=== PATIENT | male | born 1935 | race Caucasian/White ===

== ENCOUNTER 2017-10-09 16:16 | Outpatient (CLI) | payer MEDICARE, BC | END 2017-10-09 16:17 | disposition critical access hospital (66) | LOC: EMS 16:16 | PROVIDERS: ATTEND Surgery | DX: R55 Syncope and collapse (principal) | CPT/HCPCS: A0425; A0427 ==

== ENCOUNTER 2017-10-09 16:32 | Observation (INO) | payer MEDICARE, BC ==
--- NOTE | 2017-10-09 16:50 | ED Physician Documentation ---
PD HPI SYNCOPE - Stated complaint Stated Complaint: SYNCOPAL EPISODE - History obtained from History obtained from: Patient - History of Present Illness Witnessed: Witnessed (82-year-old gentleman with no significant past medical history but has had some shortness of breath recently and asymmetric pedal edema and in the past at [facility] I guess on EKG which was followed with a stress test last year for him which was negative but no echo. Today he was carrying a small door and had a syncopal episode. He felt dizzy for about 30 seconds prior. It sounds like he was out for about a minute and CPR was done while he was down. There was no chest pain or trouble breathing before or since the accident.) Review of Systems Ten Systems: 10 systems reviewed and negative Constitutional: denies: Fever, Chills Cardiac: denies: Chest pain / pressure, Palpitations Respiratory: reports: Dyspnea. denies: Cough GI: denies: Abdominal Pain, Nausea, Vomiting Musculoskeletal: denies: Neck pain, Back pain PD PAST MEDICAL HISTORY - Present Medications Home Medications: Ambulatory Orders Medication Instructions Recorded Confirmed Ascorbic Acid [Vitamin C with Angie 10/09/17 Hips] Citalopram Hydrobromide 10/09/17 [Citalopram HBr] Lisinopril 10/09/17 Magnesium Oxide [Magnesium] 10/09/17 [place]-3S/Dha/Epa/Fish Oil 10/09/17 [Sea-[place] 1,000 mg Softgel] Ubidecarenone [Co Q-10] 10/09/17 Yeast,Dried (S. Cerevisiae) 10/09/17 [Sepulveda's Yeast] diltiaZEM CD [Cardizem Cd] 10/09/17 - Allergies Allergies/Adverse Reactions: Allergies Allergy/AdvReac Type Severity Reaction Status Date / Time No Known Drug Allergies Allergy Verified 10/09/17 16:55 - Living Situation Living Situation: reports: With spouse/s.o. - Social History Does the pt smoke?: No PD ED PE NORMAL - General General: Alert and oriented X 3, No acute distress - HEENT HEENT: PERRL, EOMI - Neck Neck: Supple, no meningeal sign, No bony TTP - Cardiac Cardiac: RRR, No murmur - Respiratory Respiratory: No respiratory distress, Clear bilaterally - Abdomen Abdomen: Normal bowel sounds, Soft, Non tender - Back Back: No CVA TTP, No spinal TTP - Derm Derm: Normal color, Warm and dry - Extremities Extremities: Other (He has asymmetric pedal edema, left eye greater than right.) - Neuro Neuro: Alert and oriented X 3, Normal speech - Psych Psych: Normal mood, Normal affect Results - Vitals Vitals: Vital Signs - 24 hr 10/09/17 10/09/17 10/09/17 16:34 17:36 19:28 Temperature 37.6 C H Heart Rate 96 88 92 Respiratory 16 22 21 Rate Blood Pressure 135/87 H 123/85 H 145/92 H O2 Saturation 94 94 92 Oxygen O2 Source Room air - EKG (time done) 1648 Rate: Rate (enter#) (91) Rhythm: NSR (With supraventricular bigeminy) [place]: Normal Intervals: Normal NC QRS: LVH Ischemia: Non specific changes Computer interpretation: Agree with computer - Labs Labs: Laboratory Tests 10/09/17 10/09/17 10/09/17 16:58 16:58 16:58 WBC 5.8 RBC 4.09 L Hgb 13.0 L Hct 39.0 L MCV 95.1 H MCH 31.7 H MCHC 33.4 RDW 14.0 Plt Count 199 MPV 7.5 Neut # (Auto) 4.3 Lymph # (Auto) 0.9 L [place] # (Auto) 0.5 Eos # (Auto) 0.1 Baso # (Auto) 0.0 Absolute Nucleated RBC 0.00 Nucleated RBC % 0.1 Sodium 139 Potassium 4.0 Chloride 105 Carbon Dioxide 25 Anion Gap 9.0 BUN 23 H Creatinine 0.7 Estimated GFR (MDRD) 108 Glucose 123 H Calcium 8.7 Magnesium 1.9 Total Bilirubin 0.5 AST 39 ALT 37 Alkaline Phosphatase 80 Troponin I < 0.04 Total Protein 6.3 L Albumin 3.1 L Globulin 3.2 Albumin/Globulin Ratio 1.0 Lipase 26 PD MEDICAL DECISION MAKING - ED course ED course: 82-year-old gentleman with syncopal episode today with some concerning features. His EKG is without ischemic changes and he was without malignant arrhythmia in the emergency department but was having supraventricular bigeminy. Concern for PE given left leg swelling and syncope, however the popliteal mass probably explains the left leg swelling. CT pulmonary angiogram was worrisome for a right renal mass which will need further workup. Call the hospitalist for observation at 8:10 PM. - Sepsis Event Vital Signs: Vital Signs - 24 hr 10/09/17 10/09/17 10/09/17 16:34 17:36 19:28 Temperature 37.6 C H Heart Rate 96 88 92 Respiratory 16 22 21 Rate Blood Pressure 135/87 H 123/85 H 145/92 H O2 Saturation 94 94 92 Oxygen O2 Source Room air Departure - Departure Disposition: ED Place in Observation Clinical Impression: Renal mass Syncope Qualifiers: Syncope type: unspecified Qualified Code(s): R55 - Syncope and collapse Condition: Stable
[2017-10-09 17:02] LABS: BASOPHILS % (AUTO) 0.5 %; EOSINOPHILS # (AUTO) 0.1 10^3/uL (0.0-0.7); EOSINOPHILS % (AUTO) 1.5 %; LYMPHOCYTES # (AUTO) 0.9 10^3/uL (1.5-3.5); LYMPHOCYTES % (AUTO) 15.6 %; MEAN CORPUSCULAR HEMOGLOBIN 31.7 pg (27.0-31.0); MEAN CORPUSCULAR HGB CONC 33.4 g/dL (32.0-36.0); MEAN CORPUSCULAR VOLUME 95.1 fL (80.0-94.0); MEAN PLATELET VOLUME 7.5 fL (7.4-11.4); MONOCYTES # (AUTO) 0.5 10^3/uL (0.0-1.0); MONOCYTES % (AUTO) 8.4 %; NEUTROPHILS # (AUTO) 4.3 10^3/uL (1.5-6.6); PLT - PLATELET COUNT 199 10^3/uL (130-450); RED BLOOD COUNT 4.09 10^6/uL (4.70-6.10); WHITE BLOOD COUNT 5.8 x10^3/uL (4.8-10.8)
[2017-10-09 17:13] LABS: ALBUMIN 3.1 g/dL (3.2-5.5); BILIRUBIN,TOTAL 0.5 mg/dL (0.2-1.0); CALCIUM 8.7 mg/dL (8.5-10.3); CREATININE 0.7 mg/dL (0.6-1.2); MAGNESIUM 1.9 mg/dL (1.7-2.8); TOTAL PROTEIN 6.3 g/dL (6.7-8.2)
[2017-10-09] MEDS ORDERED: IOPAMIDOL-300 100 ML VIAL ONE ×2 (18:20→21:54)
--- NOTE | 2017-10-09 19:23 | Ultrasound Report ---
Procedure Date: 10/09/2017 Accession Number: [id number] / [id number] Procedure: US - Duplex Ext Veins Bilateral CPT Code: FULL RESULT: EXAM: BILATERAL LOWER EXTREMITY VENOUS ULTRASOUND EXAM DATE: 10/09/2017 07:08 PM. CLINICAL HISTORY: Asymmetric leg edema. COMPARISON: None. TECHNIQUE: Real-time sonographic vascular imaging was performed by the grades 7 and 8 visiting teacher through the lower extremities utilizing both color-flow and Doppler spectral analysis. Multiple field marketing representative static images were saved for review. FINDINGS: Right: Common Femoral Vein (CFV): Normal. CFV-GSV Junction: Normal. Profunda Femoral Vein (PFV): Normal. Femoral Vein (FV) Prox: Normal. Femoral Vein (FV) Mid: Normal. Femoral Vein (FV) Dist: Normal. Popliteal Vein: Normal. Posterior Tibial Veins: Normal. Peroneal Veins: Normal. Left: Common Femoral Vein (CFV): Normal. CFV-GSV Junction: Normal. Profunda Femoral Vein (PFV): Normal. Femoral Vein (FV) Prox: Normal. Femoral Vein (FV) Mid: Normal. Femoral Vein (FV) Dist: Normal. Popliteal Vein: Normal. Posterior Tibial Veins: Normal. Peroneal Veins: Normal. Other: Right popliteal fossa heavily calcified tubular area with a large amount of posterior shadowing in the soft tissue, could be calcification of muscle/tendon or adjacent soft tissue. Uncertain etiology. This measures 6.1 x 2.8 x 1.4 cm IMPRESSION: No evidence for deep venous thrombosis bilaterally. Right popliteal fossa heavily calcified tubular area with a large amount of posterior shadowing in the soft tissue, could be calcification of muscle/tendon or adjacent soft tissue. Uncertain etiology. This measures 6.1 x 2.8 x 1.4 cm. RADIA
[2017-10-09] MEDS: IOPAMIDOL-300 100 ML VIAL IVP ONE ×2 (19:41→22:40)
--- NOTE | 2017-10-09 19:57 | CT Report ---
Procedure Date: 10/09/2017 Accession Number: [id number] / [id number] Procedure: CT - Chest Angio (PE) CPT Code: FULL RESULT: EXAM: CT ANGIOGRAM CHEST EXAM DATE: 10/09/2017 07:18 PM. CLINICAL HISTORY: Syncope. COMPARISON: None. TECHNIQUE: Routine helical imaging was performed through the chest in the pulmonary arterial phase. IV Contrast: ISOVUE 300 80mL. Reconstructions: Coronal 3-D MIP reconstructions.Sagittal and coronal. In accordance with CT protocol optimization, one or more of the following dose reduction techniques were utilized for this exam: automated exposure control, adjustment of mA and/or KV based on patient size, or use of iterative reconstructive technique. FINDINGS: Pulmonary Arteries: Diagnostic quality: Mildly limited due to motion artifact, most conspicuously in the bases. Heart is mildly enlarged. A small amount of contrast refluxes into the inferior vena cava. No bowing of the ventricular septum. Lungs/Pleura: Scattered reticular densities are likely atelectasis. No consolidation. No pleural effusion or pneumothorax. No mass. Mildly elevated right hemidiaphragm. Mediastinum: Heart is mildly enlarged. Prominent right hilar lymph nodes measure up to 10 mm in short axis. Prominent but not pathologically enlarged mediastinal lymph nodes. Thoracic Aorta: Atherosclerosis. Upper Abdomen: Large right suprarenal or renal mass. Otherwise unremarkable. Other: None. IMPRESSION: 1. No pulmonary emboli identified. Mildly limited exam due to motion artifact. 2. Large right suprarenal or renal mass. Recommend further evaluation with contrast-enhanced abdomen/pelvis CT. RADIA
[2017-10-09] MEDS ORDERED: oxyCODONE 5 MG TABLET PO PRN (20:15)
[2017-10-09] MEDS ORDERED: ONDANSETRON ODT 4 MG TABLET TL PRN (20:15)
[2017-10-09] MEDS ORDERED: ONDANSETRON 4 MG/2 ML VIAL IVP PRN (20:15)
[2017-10-09] MEDS ORDERED: SODIUM CHLORIDE FLUSH 0.9% 10 ML SYRINGE IVP PRN (20:15)
[2017-10-09] MEDS ORDERED: ACETAMINOPHEN 325 MG TABLET PO PRN (20:15)
[2017-10-09] MEDS ORDERED: IOPAMIDOL-300 100 ML VIAL IVP ONE (20:16)
[2017-10-09 20:37] LABS: MEAN RETIC VALUE 117.1; RED BLOOD COUNT 4.05 10^6/uL (4.70-6.10)
[2017-10-09 20:51] LABS: % IRON SATURATION 7 % (20-50); IRON 20 ug/dL (45-182); TOTAL IRON BINDING CAPACITY 290 ug/dL (250-450); TRANSFERRIN 207 mg/dL (180-329)
[2017-10-09 21:03] LABS: FERRITIN 89.3 ng/mL (23.9-336.2)
--- NOTE | 2017-10-09 23:26 | HISTORY & PHYSICAL EXAMINATION ---
Chief Complaint - Chief Complaint Chief Complaint: passing out for a few minutes History of Present Illness - Admitted From Admitted From:: ER/Home - History Obtained From Records Reviewed: [facility] History obtained from: Patient, , and Dr. Tomlin Exam Limitations: none - History of Present Illness HPI Comment/Other: He regards himself as a healthy nahomy until about 2 months ago. He lives on the [place] for the summer and in [place] for the winter. In [place], he can do 1200 sit ups a day and walks regularly. Here, he mows his lawn with a push mower, and takes care of the property on his own. But 2 months ago, a sudden fatigue started. He has to sit down and rest in the middle of the day and he's never had to before. Denies cp, lopez, cough, sputum, chest congestion, or change in appetite/weight loss. He doesn't eat red meat and prefers duck, fish, turkey and that hasn't changed. He denies sweats. He has had prostate cancer in the past and his PSA has been so low that he now gets it checked q2 years. No ruchi pain. No change in urinary or bowel habits. No flank pain, no hematuria, no pelvic or rectal pain. No blood in his stool. But he has had more problems with breathing at night. He wakes himself with the whistling his nose makes and is starting to breath with an open mouth. No apnea. He sleeps well in spite of this but does admit to the new wakening. he does have new left leg edema that he's not had before. No recent travel or extended flight, car drive. He saw his PCP at the [facility] thru the [facility] and he was told it might be allergies and was given flonase. he took it for 2-3 days and he wasn't better so he stopped it. Today, he went to a [employer] shop in [place] to corn picker a small cabinet door. It wasn't heavy and he was walking to his car when he had a few seconds (not even a full minute) of dizziness and the next thing he knows he's waking up on the floor w CPR being done by the wood shop freight flagman. He was reported as not having a pulse or pressure and had CPR administered for about a minute when he came to. No confusion, no slurred speech, no bowel or urine incontinence. He didn't even hurt in his chest for the CPR. He's never had dizziness or orthostatic complaints before. Never told he had arrhythmia before. he did have a nuclear medicine stress test in [place] years ago (couldn't do Waqas protocol bc of knee pain at that time) and that was nml. In our ER, he was seen by Dr. Tomlin. EKG had NSR, LVH and supraventricular bigeminy. BP 135/87 with a low grade temp of 37.6. Normal physical exam except for a unilateral left leg edema. US of the leg had no DVT and CTA of the chest without PE but he has a large left renal mass. He does have a calcified cystic mass in the politeal fossa of the left knee. Placed in OBV for syncope. 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 He's "grumpy") Musculoskeletal: reports: Other (right shoulder OA and right rotator cuff repair x 2. ) Derm: reports: None MRSA Hx?: Yes - Past Surgical History Ortho: reports: Rotator cuff repair, Other (dupuytren's contracture with repair bilaterally) HEENT: reports: Tonsil/Adenoidectomy - Family & Social History Family History Comment/Other: Mom at 89 of old age and maybe "kidneys giving out". Dad at 65 of valvular heart disease from childhood rheumatic fever and also was an alcoholic. no sibs. no children Living arrangement: At home Living Situation: With spouse/s.o. Social History Notes: Born in [place] but lived in the [facility] ([place]) for 37 years. twice and has been to his 2nd for ~41 years. From [place] moved to [facility] for 10 years but too expensive and then moved to [facility] 4 years ago. Also lives in [place] for the winter months. Was in the [employer] for 6 years. Not service connected. he started smoking age of 16 and quit age of 42. No hx of alcohol abuse. Used LSD once as part of a [employer] experiment in 1963. No other recreational substance use. - Substance History Use: Uses substance without health or social issues: NONE Abuse: Recurrent use of substance despite neg consequences: NONE Dependence: Experiences withdrawal or developed tolerances: NONE - POLST Patient has POLST: No POLST Status: Full Code Meds/Allgy - Home Medications Home Medications: Ambulatory Orders Medication Instructions Recorded Confirmed Ascorbic Acid [Vitamin C with Angie 10/09/17 Hips] Citalopram Hydrobromide 20 mg PO DAILY 10/09/17 10/09/17 [Citalopram HBr] Diltiazem HCl [Diltiazem ER] 240 mg PO DAILY 10/09/17 10/09/17 Lisinopril 40 mg PO DAILY 10/09/17 10/09/17 Magnesium Oxide [Magnesium] 10/09/17 [place]-3S/Dha/Epa/Fish Oil 10/09/17 [Sea-[place] 1,000 mg Softgel] Ubidecarenone [Co Q-10] 10/09/17 Yeast,Dried (S. Cerevisiae) 10/09/17 [Sepulveda's Yeast] - Allergies Allergies/Adverse Reactions: Allergies Allergy/AdvReac Type Severity Reaction Status Date / Time No Known Drug Allergies Allergy Verified 10/09/17 16:55 Review of Systems - Constitutional Constitutional: reports: Fatigue, Malaise, Diaphoresis (only after he woke up from CPR). denies: Fever, Chills, Weakness, Poor appetite, Night sweats, Weight gain, Weight loss - Eyes Eyes: denies: Pain, Irritation, Amaurosis, Blurred vision, Spots in vision, Field loss, Vision loss - Ears, Nose & Throat Ears, Nose & Throat: reports: Hearing loss, Nasal obstruction, Nasal congestion , Dentures (that he doesn't wear). denies: Ear pain, Hearing aids, Tinnitus, Vertigo, Postnasal drainage, Sore throat, Hoarseness, Mouth lesions - Cardiovascular Cariovascular: reports: Edema (left leg only), Lightheadedness (today only for a few seconds), Syncope (today only, never before), Exertional dyspnea (maybe), Decr. exercise tolerance (yes for 2 months). denies: Irregular heart rate, Palpitations, Chest pain, Orthopnea - Respiratory Respiratory: reports: Snoring. denies: Cough, Sputum production, Wheezing, Hemoptysis, Orthopnea, SOB at rest, SOB with exertion, Apnea, Stridor - Gastrointestinal Gastrointestinal: denies: Abdominal pain, Abdominal distention, Constipation, Diarrhea, Change in bowel habits, Rectal bleeding, Nausea, Vomiting - Genitourinary Genitourinary: reports: Nocturia (is only once a night and stable for years). denies: Dysuria, Frequency, Urgency, Hematuria, Incontinence, Urethral discharge - Musculoskeletal Musculoskeletal: reports: Stiffness (knees and shoulders). denies: Muscle pain , Back pain, Muscle aches - Integumentary Integumentary: denies: Rash, Pruritis, Lesions, Dryness - Neurological Neurological: denies: General weakness, Focal weakness, Headache, Dizziness, Numbness, Memory problems, Pre-existing deficit, Abnormal gait, Seizures, Incoordination, Slurred speech - Psychiatric Psychiatric: reports: Depression. denies: Anxiety, Suicidal, Delusions - Endocrine Endocrine: denies: Polyuria, Polydypsia, Polyphagia, Intolerance to cold - Hematologic/Lymphatic Hematologic/Lymphatic: denies: Anemia, Bruising, Petechiae, Blood clots, Lymphadenopathy Exam - Vital Signs Reviewed Vital Signs: Yes Vital Signs: Vital Signs x48h Temp Pulse Resp BP Pulse Ox 10/09/17 21:04 36.8 C 98 17 134/90 H 92 - Physical Exam General Appearance: positive: No acute distress, Alert, Other (tanned elderly white male who looks stated age) Eyes Bilateral: positive: PERRL, EOMI, No scleral icterus ENT: positive: Pharynx nml Neck: positive: Thyroid nml, No JVD. negative: Stiff neck, Carotid bruit Respiratory: positive: Chest non-tender. negative: Wheezes, Rales, Rhonchi Cardiovascular: positive: Regular rate & rhythm, No murmur, No gallop, Extrasystoles. negative: Friction rub Peripheral Pulses: positive: 1+ Abdomen: positive: Non-tender, Nml bowel sounds, Mass (left abd fullness felt). negative: Tenderness, Guarding, Rebound Skin: positive: No rash, Warm, Dry, Other (chronic hyperpigmentation of shins) Extremities: positive: Non-tender, Full ROM, Pedal edema (only on left leg and it's 1+ from calf to just above knee. Left popliteal fossa doran when compared to right, but no pain. No venous stasis dermatitis.). negative: Joint swelling , Nadya's sign/cords Neurologic/Psychiatric: positive: Oriented x3, CN's nml (2-12), Motor nml, Mood/ affect nml. negative: Weakness, Facial droop, Slurred/abnml speech, Depressed mood/affect Reflexes: Bicep (R): 1+, Bicep (L): 1+, Knee (R): 1+, Knee (L): 1+, Ankle (R): 0 , Ankle (L): 0 Babinski Reflex: Right: Down, Left: Down Conclusion/Plan - Problem List (1) Syncope Conclusion/Plan: he has never had syncope before and had very little warning of this episode. Seconds. Does not sound like vasovagal syncope or orthostatic syncope. It was witnessed so no seizure. Dr Tomlin also looked at the possiblity of DVT w PE and that was negative. He has EKG changes of SVT and LVH. Differential would include Vtach from LVH or 2nd/3rd degree from use of diltiazem or SVT. Plan: [facility] and Stalin, the Admin hotel front office manager, states there are no beds. Telemetry ECHO in the morning. Qualifiers: Syncope type: unspecified Qualified Code(s): R55 - Syncope and collapse (2) Renal mass, left Conclusion/Plan: large enough to push normal kidney down and to the right under the liver. Unfortunately this mas be a primary malignancy and less likely metastatic disease from prostate cancer. Lower on the differential would be adrenal tumor or angiomyolipoma. This mass may be the cause of his fatigue and decreased exercise tolerance. I would think the size would also diminish his appetite and cause weight loss but he and his deny any changes in weight or diet. Plan: CT of abd and pelvis with contrast IVF since he will receive a dye study check BMP in am. once the results return, I will carefully explain them to the patient and will strongly recommend NO BIOPSY. The mass will need to be removed surgically. He has a PCP named Dr. Jessica Worley who works at the [facility] and I will send a copy of this H&P to her at [phone]. The [facility] number for Claudia is [phone]. (3) Leg edema, left Conclusion/Plan: Differential: DVT ruled out Pelvic mass to be evaluated with CT pelvis Adhesions from old prostate cancer surgery causing May Thurner syndrome? Anatomy of left renal vein with ureteral mets then causing iliac vein back flow? compression of leg vein from old Choudhury's cyst (but this has only been ongoing for 2 months). Plan: compression stocking. doubt venogram needed at this time. The renal mass is more important. (4) Macrocytic anemia Conclusion/Plan: is convinced it's his diet. mild. not the cause of his syncope Plan: anemia panel. - Lab Results Fish Bones: 10/09/17 16:58 10/09/17 16:58 - Diagnostic Imaging Results Diagnostic Imaging Results: positive: Final report reviewed - EKG Results EKG Interpreted Independently: No EKG Comparison: Old EKG unavailable Core Measures - Anticipated LOS I expect patient to be DC'd or transferred within 96 hours.: Yes - DVT/VTE - Prophylaxis VTE/DVT Device ordered at admit?: Yes
--- NOTE | 2017-10-10 01:33 | CT Report ---
Procedure Date: 10/09/2017 Accession Number: [id number] / [id number] Procedure: CT - Abdomen W/WO CPT Code: FULL RESULT: EXAM: CT ABDOMEN WITHOUT AND WITH CONTRAST EXAM DATE: 10/09/2017 10:44 PM. HISTORY: Renal mass. Further assessment and characterization. COMPARISON: CHEST ANGIO 10/09/2017. TECHNIQUE: Routine helical CT imaging was performed through the abdomen before and after administration of IV contrast: 100 mL Isovue-300. Enteric contrast: No. Reconstruction: Coronal and sagittal. In accordance with CT protocol optimization, one or more of the following dose reduction techniques were utilized for this exam: automated exposure control, adjustment of mA and/or KV based on patient size, or use of iterative reconstructive technique. FINDINGS: There is contrast material within the renal collecting systems bilaterally, from the preceding contrast-enhanced CT of the chest. As such, true noncontrast images cannot be acquired on this examination. There is a large right upper quadrant heterogeneous mass with heterogeneous enhancement on the postcontrast images. On the coronal and sagittal images, there is a thin plane between the right kidney and this mass. The mass originates from the right adrenal, with extension into the IVC. Hepatic veins are not well-visualized on this examination. This measures 13.7 x 11.3 x 14.0 cm (image 36 series 10). Tumor thrombus into the IVC is noted, with distention of the IVC just below the intrahepatic section of the IVC. Tiny parenchymal low-density foci within the right kidney are seen. These are difficult to characterize due to their small size. There is note made of multiple left renal cysts, largest measuring 4.8 x 3.5 cm (image 43 series 10). There is no definite left renal suspicious mass demonstrated at this time. There is a hyperdense cyst arising from the posterior aspect of the left mid kidney, measuring 11 mm. Small area of parenchymal scarring seen within the midportion of the left kidney posterolaterally with associated calyceal dilatation (image 42 series 10). No hydronephrosis within the right or left kidney demonstrated. There is symmetric contrast excretion by the kidneys bilaterally. Visualized portions of the liver demonstrate geographic indeterminate hyperenhancement within the liver superiorly, segment-8/4A (image 23 series 10). No definite additional suspicious hepatic lesion is seen at this time. Contracted gallbladder without calcified gallstones. Moderate parenchymal involution of the pancreas. No definite suspicious pancreatic lesion is demonstrated. The spleen is without significant abnormality. No definite abnormally dilated bowel loops demonstrated at this time. Appendix could not be identified with certainty on this exam. No significant free fluid or lymphadenopathy demonstrated. Moderate aortic and branch vessel atherosclerosis is present. There is moderate to severe narrowing at the origin of the celiac axis with mild poststenotic dilatation. SMA is widely patent. Lower Chest: There is dependent atelectasis within the lung bases. Small concurrent aspiration difficult to exclude with certainty. No effusion. Moderate to severe coronary vascular calcification is present. Bones: Severe multilevel degenerative change noted within the spine. Multifocal subtle small lucent abnormalities are seen within the lumbar vertebral bodies, particularly L2. These may represent areas of osteopenia. However, subtle metastases difficult to exclude with certainty. IMPRESSION: 1. Large right upper quadrant mass, arising from the right adrenal. 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 2. Invasion of the IVC with distention of the IVC, with tumor thrombus extending up to the level just below the intrahepatic IVC. 3. There is a small to medium size geographic area of increased enhancement within the superior portion of the liver, segment-8/4A. This is difficult to characterize on this exam. Further assessment recommended with a nonemergent liver MRI without and with Eovist contrast. 4. There is no definite suspicious solid appearing renal mass noted at this time. Multiple left renal cysts. Scattered tiny low-density foci within the right kidney, also probably cysts. RADIA
[2017-10-10 06:24] LABS: CALCIUM 8.8 mg/dL (8.5-10.3); CREATININE 0.7 mg/dL (0.6-1.2)
[2017-10-10] MEDS: SODIUM CHLORIDE FLUSH 0.9% 10 ML SYRINGE IVP SCH ×2 (07:20→09:00)
[2017-10-10] MEDS ORDERED: POLYETHYLENE GLYCOL 3350 17 GM PACKET PO SCH (09:00)
[2017-10-10] MEDS ORDERED: SPIRONOLACTONE 25 MG TABLET PO SCH (12:00)
[2017-10-10] MEDS ORDERED: LISINOPRIL 20 MG TABLET PO SCH (12:00)
[2017-10-10] MEDS ORDERED: METOPROLOL SUCCINATE 50 MG TABLET PO SCH (12:00)
[2017-10-10 13:45] VITALS: BP 122/76
--- NOTE | 2017-10-10 14:46 | Discharge Plan ---
Discharge Plan Disposition: Home, Self Care Condition: Fair Prescriptions: Metoprolol Succinate [Toprol Xl] 50 mg PO DAILY #30 tablet Spironolactone [Aldactone] 25 mg PO DAILY #30 tablet Diet: Low Sodium Activity Restrictions: Activity as Tolerated Shower Restrictions: No Driving Restrictions: No Weight Bearing: Full Weight Instruction Topics: Metoprolol tablets, Spironolactone tablets, Heart Failure Congestive Ch Additional Instructions or Follow Up instructions: You presented to the emergency department with a syncopal episode. While you are being evaluated for syncopal episode in the emergency department you underwent a CT angiogram of your chest which was negative for a pulmonary embolism but showed a huge renal mass. You underwent a CT of your abdomen which confirmed that you did have a renal mass that was extending into your inferior vena cava. You were monitored on telemetry and had no further events. You underwent an echocardiogram which revealed an ejection fraction of less than 20%. He was started on optimal treatment for congestive heart failure with metoprolol, spironolactone and you were continued on lisinopril. I have sent a referral to the [facility] cardiology to get you an urgent appointment to be evaluated by them. You have also called to make an appointment with urologic surgery/oncology at the [facility]. Please follow-up with your primary care physician as soon as possible and try to weeks PDA the above appointments as much as possible. Wish you the best of luck with your treatment going forward. No Smoking: If you smoke, Please STOP! Call for help. Follow-up with: Provider,Other [Primary Care Provider] -
--- NOTE | 2017-10-10 14:59 | DISCHARGE SUMMARY ---
Discharge Summary Admit Date: 10/09/17 Discharge Date: 10/10/17 Discharging Provider: Shane Glover MD Primary Care Provider: Jessica Worley MD Code Status: Attempt Resuscitation Condition at Discharge: Fair Discharge Disposition: 01 Home, Self Care - DIAGNOSES Admission Diagnoses: 1. Syncope 2. Renal mass, left 3. Leg edema, left 4. Macrocytic anemia Discharge Diagnoses with Status of Each Condition: 1. Systolic heart failure NYHA class II: Stable 2. Syncope: Stable 3. Right adrenal mass: Guarded 4. Macrocytic anemia: Stable - HPI History of Present Illness: He regards himself as a healthy nahomy until about 2 months ago. He lives on the [place] the summer and in [place] for the winter. In [place], he can do 1200 sit ups a day and walks regularly. Here, he mows his lawn with a push mower, and takes care of the property on his own. But 2 months ago, a sudden fatigue started. He has to sit down and rest in the middle of the day and he's never had to before. Denies cp, lopez, cough, sputum, chest congestion, or change in appetite/weight loss. He doesn't eat red meat and prefers duck, fish, turkey and that hasn't changed. He denies sweats. He has had prostate cancer in the past and his PSA has been so low that he now gets it checked q2 years. No ruchi pain. No change in urinary or bowel habits. No flank pain, no hematuria, no pelvic or rectal pain. No blood in his stool. But he has had more problems with breathing at night. He wakes himself with the whistling his nose makes and is starting to breath with an open mouth. No apnea. He sleeps well in spite of this but does admit to the new wakening. he does have new left leg edema that he's not had before. No recent travel or extended flight, car drive. He saw his PCP at the [facility] thru the [facility] clinics and he was told it might be allergies and was given flonase. he took it for 2-3 days and he wasn't better so he stopped it. Today, he went to a wood shop in [place] to pear picker a small cabinet door. It wasn't heavy and he was walking to his car when he had a few seconds (not even a full minute) of dizziness and the next thing he knows he's waking up on the floor w CPR being done by the wood shop child and family counselor. He was reported as not having a pulse or pressure and had CPR administered for about a minute when he came to. No confusion, no slurred speech, no bowel or urine incontinence. He didn't even hurt in his chest for the CPR. He's never had dizziness or orthostatic complaints before. Never told he had arrhythmia before. he did have a nuclear medicine stress test in [place] years ago (couldn't do Waqas protocol bc of knee pain at that time) and that was nml. In our ER, he was seen by Dr. Tomlin. EKG had NSR, LVH and supraventricular bigeminy. BP 135/87 with a low grade temp of 37.6. Normal physical exam except for a unilateral left leg edema. US of the leg had no DVT and CTA of the chest without PE but he has a large left renal mass. He does have a calcified cystic mass in the politeal fossa of the left knee. Placed in OBV for syncope. - HOSPITAL COURSE Hospital Course: After hospitalization the patient underwent a CT of his abdomen and pelvis which revealed a large right upper quadrant mass, arising from the right adrenal. 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 This mass had invasion of the IVC with distention of the IVC, with tumor thrombus extending up to the level just below the intrahepatic IVC. I spoke to oncologist on-call at [facility] [place] who recommended no need for anticoagulation despite the IVC tumor thrombus. He stated this is not normally treated with anticoagulation. He did recommend an oncology evaluation as soon as possible for chemotherapy or possible surgical intervention. The patient's was able to get an appointment with urologic oncology at the [facility] for November 11, 2017. As part of workup for his syncope the patient was placed on telemetry and had no events while on telemetry. The patient also underwent an echocardiogram which showed an ejection fraction of less than 20% with severe global hypokinesis of left ventricular contractility. The patient was started on metoprolol and spironolactone in addition to lisinopril which she was already on at home. The patient's diltiazem was discontinued. The patient did admit to increasing fatigue with exertion over the last few months. He also had increased swelling of his lower extremities. The patient however was not hypoxic and was not in decompensated heart failure. A referral was sent to cardiology at the [facility] for urgent appointment. The patient was discharged home with optimal treatment for systolic heart failure. He will need to follow-up with cardiology for further evaluation and will likely need clearance prior to getting treatment for his adrenal mass. The patient was discharged home in stable condition and will continue on optimal treatment for his congestive heart failure until he is able to get into see a sba underwriter. The patient was also told to follow-up with his PCP as soon as possible. - ALLERGIES Allergies/Adverse Reactions: Allergies Allergy/AdvReac Type Severity Reaction Status Date / Time No Known Drug Allergies Allergy Verified 10/09/17 16:55 - MEDICATIONS Home Medications: Ambulatory Orders Medication Instructions Recorded Confirmed Citalopram Hydrobromide 20 mg PO DAILY 10/09/17 10/10/17 [Citalopram HBr] Lisinopril 40 mg PO DAILY 10/09/17 10/10/17 Metoprolol Succinate [Toprol Xl] 50 mg PO DAILY #30 tablet 10/10/17 Spironolactone [Aldactone] 25 mg PO DAILY #30 tablet 10/10/17 - PHYSICAL EXAM AT DISCHARGE General Appearance: positive: No acute distress, Alert Eyes Bilateral: positive: Normal inspection, PERRL, EOMI, No lid inflammation, Conjunctivae nml, No scleral icterus ENT: positive: ENT inspection nml, Pharynx nml, No signs of dehydration. negative: Purulent nasal drainage, Pharyngeal erythema, Oral lesions Neck: positive: Nml inspection, Thyroid nml, No JVD, Trachea midline. negative : Thyromegaly, Lymphadenopathy (R), Lymphadenopathy (L), Stiff neck, Brudzinski' s sign, Carotid bruit, Tracheal deviation Respiratory: positive: Chest non-tender, No respiratory distress, Rales (Mild at bases). negative: Wheezes, Rhonchi Cardiovascular: positive: No murmur, No gallop, Irregularly irregular, Gallop/S3 Peripheral Pulses: positive: 2+ Abdomen: positive: Non-tender, No organomegaly, Nml bowel sounds, No distention. negative: Guarding, Rebound, Hepatomegaly Back: positive: Nml inspection. negative: CVA tenderness (R), CVA tenderness (L ) Skin: positive: No rash, Warm. negative: Cyanosis, Diaphoresis, Pallor Extremities: positive: Non-tender, Full ROM, Nml appearance, Pedal edema (Left lower extremity edema all the way up the leg) Neurologic/Psychiatric: positive: Oriented x3, CN's nml (2-12), Motor nml, Sensation nml, Mood/affect nml - LABS Result Diagrams: 10/09/17 16:58 10/10/17 06:05 Other Lab Results: Laboratory Results WBC 5.8 x10^3/uL (4.8-10.8) 10/09/17 16:58 RBC 4.09 10^6/uL (4.70-6.10) L 10/09/17 16:58 Hgb 13.0 g/dL (14.0-18.0) L 10/09/17 16:58 Hct 39.0 % (42.0-52.0) L 10/09/17 16:58 MCV 95.1 fL (80.0-94.0) H 10/09/17 16:58 MCH 31.7 pg (27.0-31.0) H 10/09/17 16:58 MCHC 33.4 g/dL (32.0-36.0) 10/09/17 16:58 RDW 14.0 % (12.0-15.0) 10/09/17 16:58 Plt Count 199 10^3/uL (130-450) 10/09/17 16:58 MPV 7.5 fL (7.4-11.4) 10/09/17 16:58 Reticulocyte % (Auto) 0.45 % (0.5-2.3) L 10/09/17 16:56 Neut # (Auto) 4.3 10^3/uL (1.5-6.6) 10/09/17 16:58 Lymph # (Auto) 0.9 10^3/uL (1.5-3.5) L 10/09/17 16:58 [place]ara # (Auto) 0.5 10^3/uL (0.0-1.0) 10/09/17 16:58 Eos # (Auto) 0.1 10^3/uL (0.0-0.7) 10/09/17 16:58 Baso # (Auto) 0.0 10^3/uL (0.0-0.1) 10/09/17 16:58 Absolute Nucleated RBC 0.00 x10^3/uL 10/09/17 16:58 Nucleated RBC % 0.1 /100WBC 10/09/17 16:58 Absolute Retic 0.018 10^6/uL (0.020-0.110) L 10/09/17 16:56 Sodium 138 mmol/L (135-145) 10/10/17 06:05 Potassium 3.8 mmol/L (3.5-5.0) 10/10/17 06:05 Chloride 105 mmol/L (101-111) 10/10/17 06:05 Carbon Dioxide 25 mmol/L (21-32) 10/10/17 06:05 Anion Gap 8.0 (6-13) 10/10/17 06:05 BUN 14 mg/dL (6-20) 10/10/17 06:05 Creatinine 0.7 mg/dL (0.6-1.2) 10/10/17 06:05 Estimated GFR (MDRD) 108 (>89) 10/10/17 06:05 Glucose 98 mg/dL (70-100) 10/10/17 06:05 Calcium 8.8 mg/dL (8.5-10.3) 10/10/17 06:05 Magnesium 1.9 mg/dL (1.7-2.8) 10/09/17 16:58 Iron 20 ug/dL (45-182) L 10/09/17 16:56 TIBC 290 ug/dL (250-450) 10/09/17 16:56 % Saturation 7 % (20-50) L 10/09/17 16:56 Transferrin 207 mg/dL (180-329) 10/09/17 16:56 Ferritin 89.3 ng/mL (23.9-336.2) 10/09/17 16:56 Total Bilirubin 0.5 mg/dL (0.2-1.0) 10/09/17 16:58 AST 39 IU/L (10-42) 10/09/17 16:58 ALT 37 IU/L (10-60) 10/09/17 16:58 Alkaline Phosphatase 80 IU/L (42-121) 10/09/17 16:58 Lactate Dehydrogenase 235 IU/L (91-225) H 10/09/17 16:56 Troponin I < 0.04 ng/mL (<0.49) 10/09/17 16:58 Total Protein 6.3 g/dL (6.7-8.2) L 10/09/17 16:58 Albumin 3.1 g/dL (3.2-5.5) L 10/09/17 16:58 Globulin 3.2 g/dL (2.1-4.2) 10/09/17 16:58 Albumin/Globulin Ratio 1.0 (1.0-2.2) 10/09/17 16:58 Lipase 26 U/L (22-51) 10/09/17 16:58 Vitamin B12 391 pg/mL (180-914) 10/09/17 16:56 - DIAGNOSTIC IMAGING Diagnostic Imaging Results: Final report reviewed Diagnostic Imaging Results Comments: EXAM: [id number] US/VENB ([id number]) Procedure Date: 10/09/2017 Accession Number: [id number] / [id number] Procedure: US - Duplex Ext Veins Bilateral CPT Code: FULL RESULT: EXAM: BILATERAL LOWER EXTREMITY VENOUS ULTRASOUND EXAM DATE: 10/09/2017 07:08 PM. CLINICAL HISTORY: Asymmetric leg edema. COMPARISON: None. TECHNIQUE: Real-time sonographic vascular imaging was performed by the squaring shear operator through the lower extremities utilizing both color-flow and Doppler spectral analysis. Multiple benefits representative static images were saved for review. FINDINGS: Right: Common Femoral Vein (CFV): Normal. CFV-GSV Junction: Normal. Profunda Femoral Vein (PFV): Normal. Femoral Vein (FV) Prox: Normal. Femoral Vein (FV) Mid: Normal. Femoral Vein (FV) Dist: Normal. Popliteal Vein: Normal. Posterior Tibial Veins: Normal. Peroneal Veins: Normal. Left: Common Femoral Vein (CFV): Normal. CFV-GSV Junction: Normal. Profunda Femoral Vein (PFV): Normal. Femoral Vein (FV) Prox: Normal. Femoral Vein (FV) Mid: Normal. Femoral Vein (FV) Dist: Normal. Popliteal Vein: Normal. Posterior Tibial Veins: Normal. Peroneal Veins: Normal. Other: Right popliteal fossa heavily calcified tubular area with a large amount of posterior shadowing in the soft tissue, could be calcification of muscle/tendon or adjacent soft tissue. Uncertain etiology. This measures 6.1 x 2.8 x 1.4 cm IMPRESSION: No evidence for deep venous thrombosis bilaterally. Right popliteal fossa heavily calcified tubular area with a large amount of posterior shadowing in the soft tissue, could be calcification of muscle/tendon or adjacent soft tissue. Uncertain etiology. This measures 6.1 x 2.8 x 1.4 cm. EXAM: CT/CHTANG ([id number]) Procedure Date: 10/09/2017 Accession Number: [id number] / [id number] Procedure: CT - Chest Angio (PE) CPT Code: FULL RESULT: EXAM: CT ANGIOGRAM CHEST EXAM DATE: 10/09/2017 07:18 PM. CLINICAL HISTORY: Syncope. COMPARISON: None. TECHNIQUE: Routine helical imaging was performed through the chest in the pulmonary arterial phase. IV Contrast: ISOVUE 300 80mL. Reconstructions: Coronal 3-D MIP reconstructions.Sagittal and coronal. In accordance with CT protocol optimization, one or more of the following dose reduction techniques were utilized for this exam: automated exposure control, adjustment of mA and/or KV based on patient size, or use of iterative reconstructive technique. FINDINGS: Pulmonary Arteries: Diagnostic quality: Mildly limited due to motion artifact, most conspicuously in the bases. Heart is mildly enlarged. A small amount of contrast refluxes into the inferior vena cava. No bowing of the ventricular septum. Lungs/Pleura: Scattered reticular densities are likely atelectasis. No consolidation. No pleural effusion or pneumothorax. No mass. Mildly elevated right hemidiaphragm. Mediastinum: Heart is mildly enlarged. Prominent right hilar lymph nodes measure up to 10 mm in short axis. Prominent but not pathologically enlarged mediastinal lymph nodes. Thoracic Aorta: Atherosclerosis. Upper Abdomen: Large right suprarenal or renal mass. Otherwise unremarkable. Other: None. IMPRESSION: 1. No pulmonary emboli identified. Mildly limited exam due to motion artifact. 2. Large right suprarenal or renal mass. Recommend further evaluation with contrast-enhanced abdomen/pelvis CT. EXAM: CT/ABDWWO ([id number]) Procedure Date: 10/09/2017 Accession Number: [id number] / [id number] Procedure: CT - Abdomen W/WO CPT Code: FULL RESULT: EXAM: CT ABDOMEN WITHOUT AND WITH CONTRAST EXAM DATE: 10/09/2017 10:44 PM. HISTORY: Renal mass. Further assessment and characterization. COMPARISON: CHEST ANGIO 10/09/2017. TECHNIQUE: Routine helical CT imaging was performed through the abdomen before and after administration of IV contrast: 100 mL Isovue-300. Enteric contrast: No. Reconstruction: Coronal and sagittal. In accordance with CT protocol optimization, one or more of the following dose reduction techniques were utilized for this exam: automated exposure control, adjustment of mA and/or KV based on patient size, or use of iterative reconstructive technique. FINDINGS: There is contrast material within the renal collecting systems bilaterally, from the preceding contrast-enhanced CT of the chest. As such, true noncontrast images cannot be acquired on this examination. There is a large right upper quadrant heterogeneous mass with heterogeneous enhancement on the postcontrast images. On the coronal and sagittal images, there is a thin plane between the right kidney and this mass. The mass originates from the right adrenal, with extension into the IVC. Hepatic veins are not well-visualized on this examination. This measures 13.7 x 11.3 x 14.0 cm (image 36 series 10). Tumor thrombus into the IVC is noted, with distention of the IVC just below the intrahepatic section of the IVC. Tiny parenchymal low-density foci within the right kidney are seen. These are difficult to characterize due to their small size. There is note made of multiple left renal cysts, largest measuring 4.8 x 3.5 cm (image 43 series 10). There is no definite left renal suspicious mass demonstrated at this time. There is a hyperdense cyst arising from the posterior aspect of the left mid kidney, measuring 11 mm. Small area of parenchymal scarring seen within the midportion of the left kidney posterolaterally with associated calyceal dilatation (image 42 series 10). No hydronephrosis within the right or left kidney demonstrated. There is symmetric contrast excretion by the kidneys bilaterally. Visualized portions of the liver demonstrate geographic indeterminate hyperenhancement within the liver superiorly, segment-8/4A (image 23 series 10). No definite additional suspicious hepatic lesion is seen at this time. Contracted gallbladder without calcified gallstones. Moderate parenchymal involution of the pancreas. No definite suspicious pancreatic lesion is demonstrated. The spleen is without significant abnormality. No definite abnormally dilated bowel loops demonstrated at this time. Appendix could not be identified with certainty on this exam. No significant free fluid or lymphadenopathy demonstrated. Moderate aortic and branch vessel atherosclerosis is present. There is moderate to severe narrowing at the origin of the celiac axis with mild poststenotic dilatation. SMA is widely patent. Lower Chest: There is dependent atelectasis within the lung bases. Small concurrent aspiration difficult to exclude with certainty. No effusion. Moderate to severe coronary vascular calcification is present. Bones: Severe multilevel degenerative change noted within the spine. Multifocal subtle small lucent abnormalities are seen within the lumbar vertebral bodies, particularly L2. These may represent areas of osteopenia. However, subtle metastases difficult to exclude with certainty. IMPRESSION: 1. Large right upper quadrant mass, arising from the right adrenal. 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 2. Invasion of the IVC with distention of the IVC, with tumor thrombus extending up to the level just below the intrahepatic IVC. 3. There is a small to medium size geographic area of increased enhancement within the superior portion of the liver, segment-8/4A. This is difficult to characterize on this exam. Further assessment recommended with a nonemergent liver MRI without and with Eovist contrast. 4. There is no definite suspicious solid appearing renal mass noted at this time. Multiple left renal cysts. Scattered tiny low-density foci within the right kidney, also probably cysts. Echocardiogram Impression: Moderate left ventricular enlargement. Left ventricular wall thickness is normal. Overall left ventricular systolic function is severely impaired with an ejection fraction of less than 20%. There is severe global hypokinesis of left ventricular contractility. Indeterminate left ventricular filling pattern due to tachycardia and fused E/A waves. The right ventricle is normal in size and function. Moderate increase in left atrial volume index. Mild right atrial enlargement. Aortic valve is trileaflet. There is mild aortic valve sclerosis. There is no evidence of aortic stenosis. Trace amount of aortic regurgitation. There is thickening of the mitral valve leaflets. No mitral stenosis noted. Mild mitral annular calcification. There is mild to moderate mitral regurgitation. The tricuspid valve appears structurally normal. No tricuspid stenosis noted. Mild tricuspid regurgitation. Mildly abnormal right heart pressures. The right ventricular systolic pressure at rest is 44 mmHg. IVC dilation may be due to mass. The pulmonic valve is normal. Trace to mild pulmonic regurgitation. There is no pulmonic stenosis. There is trivial pericardial effusion present. 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 The aortic root size appears normal. The ascending aorta is dilated measuring up to 3.8 cm. The pulmonary artery is normal. The inferior vena cava is dilated with less than 50 % inspiratory collapse which is suggestive of a right atrial pressure of at least 50 mmHg, which may be due to the mass extending into the vessel. There is hypoechoic mass in the IVC with spontaneous echo contrast noted before. This was also seen on CT, and is extending from a large adrenal mass. There is no pleural effusion noted. - FOLLOW UP Follow Up: The patient presented with syncope and was found to have severe systolic heart failure with an ejection fraction of less than 20%. The patient was placed on optimal medical management with metoprolol, lisinopril and spironolactone. The patient did not appear to have had a acute coronary syndrome or acute ischemia. The patient's troponin was negative and he had no regional wall motion abnormalities. The patient had global hypokinesis on echocardiogram. The patient was referred to cardiology at the [facility] and urgent referral was sent over. The patient was also found to have a right adrenal mass which was large and extending into the inferior vena cava. The patient was referred to urologic oncology and has an appointment for November 11, [address] [facility]. Patient was told to follow-up with the above and his PCP. The patient had no further episodes of syncope and no abnormal findings on telemetry. The patient was discharged home in stable condition. - TIME SPENT Time Spent in Discharge (Minutes): 45
== END 2017-10-10 15:00 | disposition home or self-care (01) ==
LOC: ED 16:32 → OBS 20:15
PROVIDERS: ADMIT Specialist; ATTEND Internal Medicine
DX: I11.0 Hypertensive heart disease with heart failure (principal); I50.20 Unspecified systolic (congestive) heart failure; R55 Syncope and collapse; R00.8 Other abnormalities of heart beat; D49.7 Neoplasm of unspecified behavior of endocrine glands and other parts of nervous system; D53.9 Nutritional anemia, unspecified; M79.9 Soft tissue disorder, unspecified; I34.0 Nonrheumatic mitral (valve) insufficiency; I47.1 Supraventricular tachycardia; N40.1 Benign prostatic hyperplasia with lower urinary tract symptoms; R35.1 Nocturia; F32.9 Major depressive disorder, single episode, unspecified; Z85.46 Personal history of malignant neoplasm of prostate; Z79.899 Other long term (current) drug therapy; Z86.14 Personal history of Methicillin resistant Staphylococcus aureus infection; Z87.891 Personal history of nicotine dependence
CPT/HCPCS: 36415; 71275; 74170; 80048; 80053; 82607; 82728; 83540; 83615; 83690; 83735; 84466; 84484; 85025; 85044; 93005; 93306; 93970; 99284; A9270; G0378; Q9967

== ENCOUNTER 2017-12-04 15:15 | Emergency (ER) | payer MEDICARE, BC ==
--- NOTE | 2017-12-04 16:16 | ED Physician Documentation ---
PD HPI UPPER EXT INJURY - Stated complaint Stated Complaint: ARM PX - Chief complaint Chief Complaint: Laceration - History obtained from History obtained from: Patient - History of Present Illness Location: Right, Arm, Other (both forearms as well) Type of injury: Fall (states lost balance and tripped last night. Struck arms on furniture.) Timing - onset: Last night Timing - details: Abrupt onset (he says he tripped and fell last night, striking right upper arm and forearms. Has skin tears. Denies bony pains.) Worsened by: Palpating. No: Moving Associated symptoms: No: Weakness, Numbness Contributing factors: No: Anticoagulated Similar symptoms before: Has not had sx before Review of Systems Constitutional: denies: Fever, Chills, Myalgias Skin: reports: Laceration (s) (thin tears of skin on arms) Musculoskeletal: denies: Neck pain, Back pain Neurologic: denies: Altered mental status, Headache, Head injury PD PAST MEDICAL HISTORY - Past Medical History Cardiovascular: Hypertension, Angina Respiratory: Shortness of breath Neuro: None Endocrine/Autoimmune: None GI: None : Benign prostate hypertrophy, Other HEENT: Chronic vision loss Psych: Depression Musculoskeletal: Other Derm: None Other Past Medical History: Adrenal cancer. Is on plavix. # cardiac stents placed on Saturday - Past Surgical History Past Surgical History: Yes Ortho: Rotator cuff repair, Other HEENT: Tonsil/Adenoidectomy - Present Medications Home Medications: Ambulatory Orders Medication Instructions Recorded Confirmed Citalopram Hydrobromide 20 mg PO DAILY 10/09/17 10/10/17 [Citalopram HBr] Lisinopril 40 mg PO DAILY 10/09/17 10/10/17 Metoprolol Succinate [Toprol Xl] 50 mg PO DAILY #30 tablet 10/10/17 Spironolactone [Aldactone] 25 mg PO DAILY #30 tablet 10/10/17 - Allergies Allergies/Adverse Reactions: Allergies Allergy/AdvReac Type Severity Reaction Status Date / Time No Known Drug Allergies Allergy Verified 12/04/17 15:30 - Social History Does the pt smoke?: No Smoking Status: Never smoker Does the pt drink ETOH?: Yes Does the pt have substance abuse?: No - Immunizations Immunizations are current?: Yes - POLST Patient has POLST: No POLST Status: Full Code PD ED PE NORMAL - Vitals Vital signs reviewed: Yes - General General: Alert and oriented X 3, No acute distress, Well developed/nourished - Neck Neck: No bony TTP - Cardiac Cardiac: RRR, No murmur - Respiratory Respiratory: Clear bilaterally, Other (no chest tenderness) - Abdomen Abdomen: Soft, Non tender - Derm Derm: Normal color, Warm and dry - Extremities Extremities: Other (both forearms with small skin abrasions. Right upper arm in biceps area with several 1 cm skin tears that are thin and not suturable. No FB nor bleeding. Some dried blood. Nursing will cleanse wounds. No bony tenderness and he has good ROM and strength in arms. ) - Neuro Neuro: Alert and oriented X 3, No motor deficit, Normal speech Results - Vitals Vitals: Vital Signs - 24 hr 12/04/17 15:24 Temperature 36.2 C L Heart Rate 73 Respiratory 16 Rate Blood Pressure 121/75 O2 Saturation 99 Oxygen O2 Source Room air PD MEDICAL DECISION MAKING - ED course Complexity details: considered differential (thin tears of skin. Will cleanse and then steri-strips/dressing. ), d/w patient - Sepsis Event Vital Signs: Vital Signs - 24 hr 12/04/17 15:24 Temperature 36.2 C L Heart Rate 73 Respiratory 16 Rate Blood Pressure 121/75 O2 Saturation 99 Oxygen O2 Source Room air Departure - Departure Disposition: 01 Home, Self Care Clinical Impression: Skin tear of upper arm without complication Qualifiers: Encounter type: initial encounter Laterality: right Qualified Code(s): S41.111A - Laceration without foreign body of right upper arm, initial encounter Condition: Stable Record reviewed to determine appropriate education?: Yes Instructions: ED Laceration All Comments: Keep the arm wound clean and dry for the next several days to week. Allow the Steri-Strips to fall off on their own. You can change the dressings on it daily. Recheck if signs of infection. Follow-up with your primary care next week, call tomorrow for an appointment. The skin was pretty thin and did not have anything stitch of all. Hopefully the tapes will hold it in place well enough to heal. It will take a couple of weeks to heal up though. Discharge Date/Time: 12/04/17 17:26
[2017-12-04 17:23] VITALS: BP 126/83
== END 2017-12-04 17:26 | disposition home or self-care (01) ==
LOC: ED 15:15
DX: S41.111A Laceration without foreign body of right upper arm, initial encounter (principal); W01.190A Fall on same level from slipping, tripping and stumbling with subsequent striking against furniture, initial encounter; S50.812A Abrasion of left forearm, initial encounter; S50.811A Abrasion of right forearm, initial encounter; S40.811A Abrasion of right upper arm, initial encounter; I10 Essential (primary) hypertension; I20.9 Angina pectoris, unspecified; R06.02 Shortness of breath; Z79.02 Long term (current) use of antithrombotics/antiplatelets; Z95.5 Presence of coronary angioplasty implant and graft
CPT/HCPCS: 99283

== ENCOUNTER 2018-12-26 10:06 | Outpatient (CLI) | payer MEDICARE, BC ==
[2018-12-26 18:03] LABS: CALCIUM 9.6 mg/dL (8.5-10.3); CREATININE 1.6 mg/dL (0.6-1.2)
== END 2018-12-26 10:07 | disposition home or self-care (01) ==
LOC: LAB.S 10:06
PROVIDERS: ATTEND Internal Medicine Cardiovascular Disease
DX: E87.5 Hyperkalemia (principal)
CPT/HCPCS: 36415; 80048

== ENCOUNTER 2019-11-27 13:07 | Emergency (ER) | payer MEDICARE, BC ==
--- NOTE | 2019-11-27 14:15 | XRAY Report ---
PROCEDURE: Chest 2 View X-Ray INDICATIONS: cough TECHNIQUE: 2 view(s) of the chest. COMPARISON: CT chest angiogram 10/09/2017. FINDINGS: Surgical changes and devices: None. Lungs and pleura: Multiple oval nodular opacities are demonstrated in the lungs bilaterally measurin g up to approximately 1.8 cm in the right lung base and 2.1 cm in the left lung base. No focal consol idation. There is elevation of the right hemidiaphragm. No pleural effusions or pneumothorax. Mediastinum: Mediastinal contours are normal. Heart size is normal. Bones and chest wall: No suspicious bony abnormalities. Soft tissues appear unremarkable. IMPRESSION: 1. Multiple bilateral nodular opacities are new from the prior CT. The findings are highly suspicious for metastatic disease. Recommend further evaluation with a chest CT. Reviewed by: Anurag Gordon MD on 11/27/2019 2:14 PM PDT Approved by: Anurag Gordon MD on 11/27/2019 2:14 PM PDT Station ID: [id number]
[2019-11-27] MEDS ORDERED: ALBUTEROL 1 PUFF INH STA (17:54)
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
[2019-11-27 18:12] VITALS: BP 103/91
== END 2019-11-27 18:52 | disposition home or self-care (01) ==
LOC: ED 13:07
DX: C78.01 Secondary malignant neoplasm of right lung (principal); C78.02 Secondary malignant neoplasm of left lung; C78.7 Secondary malignant neoplasm of liver and intrahepatic bile duct; C74.90 Malignant neoplasm of unspecified part of unspecified adrenal gland; I11.0 Hypertensive heart disease with heart failure; I50.9 Heart failure, unspecified; Z87.891 Personal history of nicotine dependence
CPT/HCPCS: 71046; 94640; 99283; 99284

== ENCOUNTER 2019-12-21 04:31 | Outpatient (CLI) | payer MEDICARE, BC | END 2019-12-21 04:32 | disposition critical access hospital (66) | LOC: EMS 04:31 | PROVIDERS: ATTEND Surgery | DX: R41.82 Altered mental status, unspecified (principal); R09.89 Other specified symptoms and signs involving the circulatory and respiratory systems; W19.XXXA Unspecified fall, initial encounter; Y92.003 Bedroom of unspecified non-institutional (private) residence as the place of occurrence of the external cause; Z79.01 Long term (current) use of anticoagulants | CPT/HCPCS: A0425; A0427 ==

== ENCOUNTER 2019-12-21 04:52 | Inpatient (IN) | payer MEDICARE, BC ==
--- NOTE | 2019-12-21 05:03 | ED Physician Documentation ---
History of Present Illness - Stated complaint Stated Complaint: FELL, ALOC - History obtained from History obtained from: Patient, EMS - History of Present Illness Timing: How many days ago (3) - Additonal information Additional information: 84 y/o male with an adrenal tumor that has metastasized. The tumor is large and impinging on the IVC. The patient has been in to see the oncologist and his hear t is not strong enough to tolerate the chemotherapy and he is transitioning to hospice. The hospice will not be available for several more days. In the meantime the patient has a markedly decreased oral intake and is not taking fluids he has become more disoriented over the past 4 days and this morning he fell out of bed and he is on eliquist. He is a DNR but aspects of care have not been ironed out. The indicates she needs guidance in this respect. Review of Systems Unable to obtain: AMS Constitutional: denies: Fever Respiratory: denies: Cough GI: denies: Vomiting : denies: Dysuria, Frequency Neurologic: reports: Generalized weakness PD PAST MEDICAL HISTORY - Past Medical History Cardiovascular: Congestive heart failure, Hypertension, Angina Respiratory: Shortness of breath Neuro: None Endocrine/Autoimmune: None GI: None : Benign prostate hypertrophy, Other HEENT: Chronic vision loss Psych: Depression Musculoskeletal: Other Derm: None - Past Surgical History Past Surgical History: Yes Ortho: Rotator cuff repair, Other HEENT: Tonsil/Adenoidectomy - Present Medications Home Medications: Ambulatory Orders Medication Instructions Recorded Confirmed lisinopriL [Lisinopril] 40 mg PO DAILY 10/09/17 12/21/19 Albuterol Sulf [Ventolin Hfa 1 - 2 puffs INH Q4HR PRN #1 inhaler 11/27/19 12/21/19 Inhaler] Furosemide 40 mg PO DAILY 11/27/19 12/21/19 Apixaban [Eliquis] 5 mg PO BID 12/21/19 12/21/19 LORazepam [Ativan] 0.5 mg PO TID PRN 12/21/19 12/21/19 - Allergies Allergies/Adverse Reactions: Allergies Allergy/AdvReac Type Severity Reaction Status Date / Time No Known Drug Allergies Allergy Verified 12/21/19 05:11 - Social History Does the pt smoke?: No Smoking Status: Former smoker Does the pt drink ETOH?: Yes Does the pt have substance abuse?: No - Immunizations Immunizations are current?: Yes - POLST Patient has POLST: No POLST Status: Full Code PD ED PE NORMAL - Vitals Vital signs reviewed: Yes (hypotensive ) - General General: No acute distress, Other (thin bearded male without his teeth is able to speak 1-2 unintelligible words on arrival. ) - HEENT HEENT: Atraumatic, PERRL, EOMI - Neck Neck: Supple, no meningeal sign - Cardiac Cardiac: No murmur, Other (irregularly irregular rate and rhythm) - Respiratory Respiratory: No respiratory distress, Clear bilaterally - Abdomen Abdomen: Soft, Non tender, Other (There is a caput present like couvier baumagarter syndrome) - Back Back: No CVA TTP, No spinal TTP - Derm Derm: Normal color Results - Vitals Vitals: Vital Signs - 24 hr 12/21/19 12/21/19 12/21/19 04:53 04:56 05:22 Temperature 34.7 C L Heart Rate 86 102 H 97 Respiratory 19 19 21 Rate Blood Pressure 68/34 L 77/44 L 66/54 L O2 Saturation 92 94 96 12/21/19 12/21/19 12/21/19 05:36 05:45 05:46 Temperature 34.8 C L Heart Rate 84 92 90 Respiratory 17 20 19 Rate Blood Pressure 79/61 L 95/79 85/69 L O2 Saturation 16 L 95 96 12/21/19 12/21/19 12/21/19 06:08 06:23 06:30 Temperature 35.0 C L 35.1 C L Heart Rate 81 92 101 H Respiratory 22 22 21 Rate Blood Pressure 91/58 L 73/44 L 61/41 L O2 Saturation 95 95 94 12/21/19 06:36 Temperature Heart Rate 100 Respiratory 20 Rate Blood Pressure 72/52 L O2 Saturation 95 Oxygen O2 Source Nasal cannula Oxygen Flow Rate 4 - EKG (time done) 0459 Rate: Rate (enter#) (92) Rhythm: Atrial fibrillation Ischemia: Q waves Compare to prior EKG: Changed from prior EKG (SPT 10-09-2017 the rhythm has changed to afib, the voltage is markedly decreased, the QRS has widened and the LVH with strain pattern has resolved. ) Computer interpretation: Agree with computer - Labs Labs: Laboratory Tests 12/21/19 12/21/1912/20/20 05:05 05:05 05:05 WBC 7.7 RBC 4.15 L Hgb 13.5 L Hct 41.4 L MCV 99.8 H MCH 32.5 H MCHC 32.6 RDW 16.3 H Plt Count 192 MPV 11.5 H Neut # (Auto) 6.7 H Lymph # (Auto) 0.5 L [place] # (Auto) 0.5 Eos # (Auto) 0.1 Baso # (Auto) 0.0 Absolute Nucleated RBC 0.00 Nucleated RBC % 0.0 PT 25.6 H INR 2.4 H APTT 30.5 Sodium 137 Potassium 7.4 H* Chloride 96 L Carbon Dioxide 25 Anion Gap 16.0 H BUN 119 H* Creatinine 6.5 H Estimated GFR (MDRD) 8 L Glucose 79 Calcium 8.7 Magnesium 4.0 H Total Bilirubin 1.3 H AST 97 H ALT 51 Alkaline Phosphatase 449 H Total Protein 5.7 L Albumin 1.8 L Globulin 3.9 Albumin/Globulin Ratio 0.5 L Lipase 19 L - Rads (name of study) CT head without Radiology: Prelim report reviewed (Impression: 1. no acute intracranial infarct or hemorrhage. 2. Periventricular and deep white matter hypodensity secondary to microangiopathic disease. ), EMP read indepedently, See rad report PD MEDICAL DECISION MAKING - ED course Complexity details: reviewed old records, reviewed results, re-evaluated patient, considered differential, d/w patient, d/w family ED course: 84 y/o male with advanced metastatic cancer arrives to the ED after falling out of bed. He is altered and this appears to be due to severe dehydration secondary to decreased oral intake and use of lasix. He is hypotensive and hyperkalemic as well. He is administered IV saline with improvement in mentation and blood pressure. For the elevated K+ he is administered IV calcium gluconate and 10 units of regular insulin followed by D50. Dr. Perla is consulted in the case and will admit the patient with intention of assisting with palliative care and transition to hospice. Today it looks like he is close to and we have intervened and interrupted a peaceful exit. Departure - Departure Disposition: 66 [facility] DC/Xfer Clinical Impression: Dehydration, Hyperkalemia, Acute kidney injury Altered mental status Qualifiers: Altered mental status type: stupor Qualified Code(s): R40.1 - Stupor Hypotension Qualifiers: Hypotension type: hypotension due to hypovolemia Qualified Code(s): I95.89 - Other hypotension; E86.1 - Hypovolemia
[2019-12-21 05:14] LABS: BASOPHILS % (AUTO) 0.4 %; EOSINOPHILS # (AUTO) 0.1 10^3/uL (0.0-0.7); EOSINOPHILS % (AUTO) 0.8 %; HGB - HEMOGLOBIN 13.5 g/dL (14.0-18.0); LYMPHOCYTES # (AUTO) 0.5 10^3/uL (1.5-3.5); LYMPHOCYTES % (AUTO) 5.9 %; MEAN CORPUSCULAR HEMOGLOBIN 32.5 pg (27.0-31.0); MEAN CORPUSCULAR HGB CONC 32.6 g/dL (32.0-36.0); MEAN CORPUSCULAR VOLUME 99.8 fL (80.0-94.0); MEAN PLATELET VOLUME 11.5 fL (7.4-11.4); MONOCYTES # (AUTO) 0.5 10^3/uL (0.0-1.0); NEUTROPHILS # (AUTO) 6.7 10^3/uL (1.5-6.6); NEUTROPHILS % (AUTO) 86.5 %; PLT - PLATELET COUNT 192 10^3/uL (130-450); RED BLOOD COUNT 4.15 10^6/uL (4.70-6.10); RED CELL DISTRIBUTION WIDTH 16.3 % (12.0-15.0); WHITE BLOOD COUNT 7.7 x10^3/uL (4.8-10.8)
[2019-12-21 05:34] LABS: INR 2.4 (0.8-1.2); PT - PROTHROMBIN TIME 25.6 secs (9.9-12.6)
[2019-12-21] MEDS ORDERED: SODIUM CHLORIDE 0.9% 1,000 ML IV STA ×3 (05:34→06:32)
[2019-12-21 05:42] LABS: PARTIAL THROMBOPLASTIN TIME 30.5 secs (24.9-33.3)
[2019-12-21 05:49] LABS: ALBUMIN 1.8 g/dL (3.2-5.5); ALBUMIN/GLOBULIN RATIO 0.5 (1.0-2.2); BILIRUBIN,TOTAL 1.3 mg/dL (0.2-1.0); CALCIUM 8.7 mg/dL (8.5-10.3); CREATININE 6.5 mg/dL (0.6-1.2); TOTAL PROTEIN 5.7 g/dL (6.7-8.2)
[2019-12-21] MEDS ORDERED: CALCIUM GLUCONATE 1000 MG/10 ML VIAL IVP STA (06:03)
[2019-12-21] MEDS ORDERED: INSULIN REGULAR HUMAN 100 UNIT/1 ML 10 ML MDV IVP STA (06:06)
[2019-12-21] MEDS ORDERED: DEXTROSE 50% ABBOJECT 25 GM/50 ML SYRINGE IVP STA (06:07)
[2019-12-21] MEDS ORDERED: ACETAMINOPHEN 325 MG TABLET PO PRN (06:30)
[2019-12-21] MEDS ORDERED: ONDANSETRON 4 MG/2 ML VIAL IVP PRN (06:30)
[2019-12-21 07:00] VITALS: BP 80/57
[2019-12-21] MEDS ORDERED: SODIUM BICARBONATE 150 MEQ in DEXTROSE 5% 1,000 ML IV SCH (07:00)
[2019-12-21] MEDS ORDERED: LACTATED RINGERS 1,000 ML IV SCH (07:00)
--- NOTE | 2019-12-21 08:04 | CT Report ---
PROCEDURE: HEAD WO INDICATIONS: concussion TECHNIQUE: Noncontrast 4.5 mm thick angled axial sections acquired from the foramen magnum to the vertex. For r adiation dose reduction, the following was used: automated exposure control, adjustment of mA and/or kV according to patient size. COMPARISON: None. FINDINGS: Image quality: Excellent. The ventricular system and cortical sulci demonstrate atrophy, consistent for patient's stated age. There are areas of hypodensity in the periventricular and subcortical white matter. There is no acut e intra or extra-axial fluid collection. No acute hemorrhage, mass lesion or midline shift. Brainst em is unremarkable. Globes are symmetrical. Sinuses are aerated. Osseous structures are intact. IMPRESSION: 1. No acute intracranial process. 2. Mild to moderate atrophy and chronic microvascular ischemic changes. The above findings are concordant with preliminary report. Reviewed by: Yumiko Lim MD on 12/21/2019 8:03 AM PDT Approved by: Yumiko Lim MD on 12/21/2019 8:03 AM PDT Station ID: [id number]
--- NOTE | 2019-12-21 08:13 | ADVANCE CARE PLANNING NOTE ---
Advance Care Planning - Planning Encounter Date: 12/21/19 Time: 08:08 Purpose: establish care goals Parties in Attendance: patient, and hospitalist Decisional Capacity of the Patient: not intact. he is delirius and can't participate - Diagnosis for Encounter (1) Metastatic cancer to lung Qualifiers: Laterality: unspecified laterality Qualified Code(s): C78.00 - Secondary malignant neoplasm of unspecified lung Summary: He has metastatic adrenal cancer. Both adrenal glands. Has been followed by [facility]. In the last few weeks they have told him and her that his cancer is no longer treatable. They made referral to hospice and he was supposed to be seen this week. They have strongly recommended no forced hydration. No IV hydration. She brought him to the hospital because he was so weak he was falling down - Encounter Subjective/Patient's Story: He was born and raised in [place]. But shortly thereafter was in [place]. his and they have been for over 50 years. 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 They also lived in [place] for 10 years. [facility]. They finally came back down to [facility] after 10 years of [facility] and split [place] have been [place] on the [place] since about July of this year. They have no other family. Her sibling in a plane accident. His sister of some type of unknown illness. They have no children. They have no nieces or nephews. She has been taking care of him. She is also realizing that she cannot do it by herself anymore. Just picking them up when he falls, or trying to safely bathe him has become impossible for her. She has not slept in 3 days. When they got the news that he was no longer a treatment candidate, he has been at home. He is not eating, maybe a few sips of water here and there. Prior to that he would just have nonstop vomiting. At least the vomiting is stopped. When she brought him to the emergency room she really did not sit down and talk to Dr. Harrison. She did not make it clear to him that she did not want him to get IV fluids and that the recommendation was to allow a natural . She said that it all happened so fast and things were happening to her while she was talking to Dr. Harrison. He is now gotten 3 L and is starting to wake up a little bit. She really wants us to leave him alone and only make him comfortable. Goals of Care: To allow a natural . While she would prefer him to be at home when he dies, she has not made arrangements yet with hospice or private duty caregivers and is overwhelmed. Plan: 1. Contact hospice. See how fast they can I will put him up. 2. She needs to get a list of private duty caregivers to be able to hire people to help her take care of him at home. 3. In the meantime, we will keep him here with comfort measures only. He does appear to be imminently dying and is dehydrated, hypotensive, delirious. She is sad when she says is but she hopes that he dies here before he has to go back home. I did explain to her that he could only stay here until we could figure out how to help her. He cannot necessarily stay here beyond 2 or 3 days. Code Status: Do Not Attempt Resuscitation
--- NOTE | 2019-12-21 08:15 | HISTORY & PHYSICAL EXAMINATION ---
Chief Complaint - Chief Complaint Chief Complaint: falling and not eating w terminal cancer History of Present Illness - Admitted From Admitted From:: Home/ER - History Obtained From Records Reviewed: [facility] History obtained from: Exam Limitations: patient has delirium - History of Present Illness HPI Comment/Other: Patient is an 84-year-old white male that presents to emergency room with failure to thrive at home. In October 2017 he had an episode of syncope that was attributed to possible SVT. During that evaluation for pulmonary embolus, the CT angiogram of the chest showed a large left renal mass. Between then and now he has been diagnosed with an adrenal tumor. It has since metastasized. It is large and impinging on his inferior vena cava. He is followed by [facility]. They have told him that he is no longer a candidate for therapy, his heart is "not strong enough". And they have recommended hospice. Over the last several weeks he has had failure to thrive with decreasing p.o. intake, increasing sleepiness. He is getting increasingly confused. He is fallen a couple of times and the is getting overwhelmed with having to pick him up. She does not have the strength. The last 4 days have been particularly difficult. This morning he fell out of bed, and could not get up. He is on Eliquis but unclear why. In the emergency room his blood pressure was 95/79. He was hypothermic at 35. Respirations 20. Requiring 4 L nasal cannula to saturate 95%. He is a very gaunt, cachectic elderly man. Delirious. He has an irregularly irregular rhythm. Abdomen has caput present. His potassium is 7.4. BUN 119, creatinine 6.5. Bili is elevated at 1.3. AST 97. Malnourished with a protein of 5.7, albumin 1.8. Hemoglobin is 13.5 white cell count is normal. He is now admitted for initial hydration orders. Treatment of this malnutrition and dehydration but the is clear that she does not want us to do this. She wants us to make him comfortable. 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 Per Felicia pt. has a POLST form- DNR but not with her, @ home. - Past Surgical History Ortho: reports: Rotator cuff repair, Other HEENT: reports: Tonsil/Adenoidectomy - Family & Social History Family History Comment/Other: Mom at 89 of old age and maybe "kidneys giv ing out". Dad at 65 of valvular heart disease from childhood rheumatic fever and also was an alcoholic. no sibs. no children Living arrangement: At home Living Situation: With spouse/s.o. Social History Notes: Born in [place] but lived in the [facility] ([place] for 37 years. twice and has been to his 2nd for ~43 years. From [place] moved to [facility] for 10 years but too expensive and then moved to [facility] 2013. Also lives in [place] for the winter months. Was in the [employer] for 6 years. 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 he started smoking age of 16 and quit age of 42. No hx of alcohol abuse. Used LSD once as part of a [employer] experiment in 1963. No other recreational substance use. - Substance History Use: Uses substance without health or social issues: NONE Abuse: Recurrent use of substance despite neg consequences: NONE Dependence: Experiences withdrawal or developed tolerances: NONE - POLST Patient has POLST: Yes POLST Status: DNR Meds/Allgy - Home Medications Home Medications: Ambulatory Orders Medication Instructions Recorded Confirmed lisinopriL [Lisinopril] 40 mg PO DAILY 10/09/17 12/21/19 Albuterol Sulf [Ventolin Hfa 1 - 2 puffs INH Q4HR PRN #1 inhaler 11/27/19 12/21/19 Inhaler] Furosemide 40 mg PO DAILY 11/27/19 12/21/19 Apixaban [Eliquis] 5 mg PO BID 12/21/19 12/21/19 LORazepam [Ativan] 0.5 mg PO TID PRN 12/21/19 12/21/19 - Allergies Allergies/Adverse Reactions: Allergies Allergy/AdvReac Type Severity Reaction Status Date / Time No Known Drug Allergies Allergy Verified 12/21/19 05:11 Review of Systems - Constitutional Constitutional: reports: Weight loss - Eyes Eyes: reports: Vision loss - Ears, Nose & Throat Ears, Nose & Throat: reports: Vertigo, Dental decay - Cardiovascular Cariovascular: reports: Irregular heart rate, Edema, Lightheadedness, Syncope, Exertional dyspnea, Decr. exercise tolerance, Orthopnea - Respiratory Respiratory: reports: Cough, Orthopnea, SOB at rest, SOB with exertion - Gastrointestinal Gastrointestinal: reports: Abdominal distention, Nausea, Vomiting, Reflux/heartburn, Poor appetite - Genitourinary Genitourinary: reports: Incontinence - Musculoskeletal Musculoskeletal: reports: Muscle pain, Back pain, Other (Increasing leg edema left leg more than right leg.) - Integumentary Integumentary: denies: Rash - Neurological Neurological: reports: General weakness, Dizziness, Memory problems, Slurred speech - Psychiatric Psychiatric: reports: Depression - Endocrine Endocrine: reports: Intolerance to cold - Hematologic/Lymphatic Hematologic/Lymphatic: reports: Anemia, Bruising Prior Level of Functionality: When he presented in October 2019, this was a gentleman who was completely independent. Very active physically. Gentle downward decline over the last 2 years and over the last few months sharp decline. In the last month he is compl etely dependent on his for bathing, eating. Has no durable medical equipment at home but needs it. Exam - Vital Signs Reviewed Vital Signs: Yes Vital Signs: Vital Signs x48h Temp Pulse Resp BP Pulse Ox 12/21/19 06:58 35.2 C L 96 20 80/57 L 95 12/21/19 06:36 100 20 72/52 L 95 12/21/19 06:30 101 H 21 61/41 L 94 12/21/19 06:23 35.1 C L 92 22 73/44 L 95 12/21/19 06:08 35.0 C L 81 22 91/58 L 95 12/21/19 05:46 90 19 85/69 L 96 12/21/19 05:45 92 20 95/79 95 12/21/19 05:36 34.8 C L 84 17 79/61 L 16 L 12/21/19 05:22 97 21 66/54 L 96 12/21/19 04:56 102 H 19 77/44 L 94 12/21/19 04:53 34.7 C L 86 19 68/34 L 92 - Physical Exam General Appearance: positive: Other (Gaunt, cachectic delirious elderly gentleman with dry cracked lips, constantly trying to get up out of bed who does not know where he is or why he is here) Eyes Bilateral: positive: PERRL ENT: positive: Dry mucous membranes, Other (Dry cracked lips. Dental caries. Tongue cracked.) Neck: positive: No JVD, Lymphadenopathy (R), Lymphadenopathy (L). negative: Stiff neck Respiratory: positive: No respiratory distress. negative: Wheezes, Rales, Rhonchi Cardiovascular: positive: Irregularly irregular, Systolic murmur. negative: Gallop/S4, Friction rub Abdomen: positive: Other (Distended with fluid. Masslike effect left mida bdomen. Mild tenderness and he grimaces with pain to withdraw but no rebound or guarding. Hypoactive bowel sounds.Scrotal edema) Skin: positive: No rash Extremities: positive: Full ROM, Pedal edema, Other (The right leg has numerous dark purplish superficial venous perforators present on the top of the skin over the distal ruby, lateral calf. 1+ edema. The left leg has 2+ edema with no superficial venous perforators, shiny and tight skin that is starting to peel away from the edema. The skin is war) Neurologic/Psychiatric: positive: CN's nml (2-12), Disoriented to person, Disoriented to place, Disoriented to time, Slurred/abnml speech (Occasional clear symptoms but for the most part it is muttering, gibberish, not understandable. He knows that he is not at the grocery store, the library, or his house but he also denies that he is in the hospital. He does not know why he is here.). negative: Motor nml (Generalized weakness. Off balance.) Conclusion/Plan - Problem List (1) Acute renal failure Conclusion/Plan: Most likely due to severe lack of p.o. intake, nutrition. This has resulted in severe dehydration and renal failure. He has metabolic acidosis, hyperkalemic, hypochloremic, with an anion gap of 16. When we met him in October 2017 his BUN and creatinine were 23 and 0.7. December 2018 he was 61 and 1.6. And today he is 119 and 6.5. Plan: Inpatient status for comfort measures Stop IV fluids DO NOT RESUSCITATE Qualifiers: Acute renal failure type: unspecified Qualified Code(s): N17.9 - Acute kidney failure, unspecified (2) Adrenal gland cancer Conclusion/Plan: Tumor mass is described as invading the IVC. No longer a candidate. Plan: [facility] records Contact hospice Qualifiers: Adrenal gland location: unspecified part (3) Caring for the dying Conclusion/Plan: At this point, this unfortunate gentleman is most likely actively dying. Hypotensive. Delirious. And our intervention with 3 L of fluid has resuscitated him somewhat. Now that the is better about expressing what she wants for her , we have stopped all of the resuscitative measures. We are focusing on comfort. (4) Comfort measures only status Conclusion/Plan: I have stopped vital signs, lab draws. I am giving him medication such as morphine, Ativan, scopolamine, Tylenol. - Lab Results Lab results reviewed: Yes Fish Bones: 12/21/19 05:05 12/21/19 05:05
[2019-12-21] MEDS ORDERED: ATROPINE 1% OPHTH DROPS 2 ML SL PRN (08:29)
[2019-12-21] MEDS ORDERED: MORPHINE SOL 10 MG/0.5 ML ORAL SYRINGE PO PRN (08:29)
[2019-12-21] MEDS ORDERED: METOCLOPRAMIDE 10 MG/2 ML VIAL IVP PRN (08:29)
[2019-12-21] MEDS: LORazepam 2 MG/ML VIAL IVP PRN ×3 (09:12→21:44)
[2019-12-21] MEDS: SODIUM CHLORIDE FLUSH 0.9% 10 ML SYRINGE IVP SCH ×2 (09:12→16:15)
[2019-12-21] MEDS: MORPHINE 2 MG/ML CARPUJECT IVP PRN ×4 (10:26→19:33)
--- NOTE | 2019-12-21 11:16 | PHARMACY PROGRESS NOTE ---
- Best Possible Medication History Admit Date and Time: 12/21/19 0630 Processed by: Nursing Medication History completed: Yes Patient Interview: Completed Secondary Source(s): Pharmacy records, Insurance records As the person ultimately responsible for medication therapy, providers are able to order a medication from an existing home medication list in [facility] via the "Reconcile Routine" prior to Confirmation of that medication by field support specialist. Such practice is discouraged except when the physician, in their clinical judgment, deems that a medical need exists for a medication without regard to previous use.
[2019-12-21] MEDS: SODIUM CHLORIDE FLUSH 0.9% 10 ML SYRINGE IVP PRN ×2 (17:24→19:33)
[2019-12-22] MEDS: MORPHINE 2 MG/ML CARPUJECT IVP PRN (00:33)
[2019-12-22] MEDS: SODIUM CHLORIDE FLUSH 0.9% 10 ML SYRINGE IVP SCH ×2 (00:33→10:13)
[2019-12-22] MEDS: LORazepam 2 MG/ML VIAL IVP PRN (04:54)
--- NOTE | 2019-12-22 11:18 | Discharge Plan ---
Discharge Plan Problem Reviewed?: Yes Disposition: 20 No Smoking: If you smoke, Please STOP! Call for help. Follow-up with: Erasmo Bryant MD [Primary Care Provider] -
--- NOTE | 2019-12-22 11:20 | DISCHARGE SUMMARY ---
Discharge Summary Admit Date: 12/21/19 Discharge Date: 12/22/19 Discharging Provider: Dr Lizzy Blair Primary Care Provider: Erasmo Bryant Discharge Disposition: 20 - HPI History of Present Illness: From the admission H&P of Dr. Richa Rivera: Patient is an 84-year-old white male that presents to emergency room with failure to thrive at home. In October 2017 he had an episode of syncope that was attributed to possible SVT. During that evaluation for pulmonary embolus, the CT angiogram of the chest showed a large left renal mass. Between then and now he has been diagnosed with an adrenal tumor. It has since metastasized. It is large and impinging on his inferior vena cava. He is followed by [facility]. They have told him that he is no longer a candidate for therapy, his heart is "not strong enough". And they have recommended hospice. Over the last several weeks he has had failure to thrive with decreasing p.o. intake, increasing sleepiness. He is getting increasingly confused. He is fallen a couple of times and the is getting overwhelmed with having to pick him up. She does not have the strength. The last 4 days have been particularly difficult. This morning he fell out of bed, and could not get up. He is on Eliquis but unclear why. In the emergency room his blood pressure was 95/79. He was hypothermic at 35. Respirations 20. Requiring 4 L nasal cannula to saturate 95%. He is a very gaunt, cachectic elderly man. Delirious. He has an irregularly irregular rhythm. Abdomen has caput present. His potassium is 7.4. BUN 119, creatinine 6.5. Bili is elevated at 1.3. AST 97. Malnourished with a protein of 5.7, albumin 1.8. Hemoglobin is 13.5 white cell count is normal. He is now admitted for initial hydration orders. Treatment of this malnutrition and dehydration but the is clear that she does not want us to do this. She wants us to make him comfortable. - HOSPITAL COURSE Hospital Course: (1) Acute renal failure JEFF was likely due to severe lack of p.o. intake and nutrition. This has resulted in severe dehydration, renal failure, metabolic acidosis, hyperkalemia, hypochloremia with an anion gap of 16. He was managed with comfort measures only. (2) Comfort measures only status This gentleman was most likely actively dying, he was hypotensive and delirious, and our ER intervention with 3 L of fluid resuscitated him somewhat. The was better about expressing what she wanted for her , and we stopped all of the resuscitative measures, and are focusing on comfort. He was prescribed morphine, Ativan, scopolamine, Tylenol. He was pronounced at 11:19 a.m. on 12/22/19. (2) Adrenal gland cancer His malignancy was metastatic. The tumor mass was described as invading the IVC. - ALLERGIES Allergies/Adverse Reactions: Allergies Allergy/AdvReac Type Severity Reaction Status Date / Time No Known Drug Allergies Allergy Verified 12/21/19 05:11 - MEDICATIONS Home Medications: Ambulatory Orders Medication Instructions Recorded Confirmed lisinopriL [Lisinopril] 40 mg PO DAILY 10/09/17 12/21/19 Albuterol Sulf [Ventolin Hfa 1 - 2 puffs INH Q4HR PRN #1 inhaler 11/27/19 12/21/19 Inhaler] Furosemide 40 mg PO DAILY 11/27/19 12/21/19 Apixaban [Eliquis] 5 mg PO BID 12/21/19 12/21/19 LORazepam [Ativan] 0.5 mg PO TID PRN 12/21/19 12/21/19 Ondansetron [Ondansetron Odt] 4 mg PO Q87H PRN 12/21/19 12/21/19 oxyCODONE [Roxicodone] 5 - 10 mg PO Q4-6H PRN 12/21/19 12/21/19 - LABS Result Diagrams: 12/21/19 05:05 12/21/19 05:05
== END 2019-12-22 11:19 | disposition expired | DRG 683 ==
LOC: EDUNIT# → ED 04:52 → MS3 06:30 → UNDOADMIN 06:30 → MS2 06:30 → OBS 12-22 13:11 → UNDODISIN 12-22 23:19
PROVIDERS: ADMIT Internal Medicine; ATTEND Internal Medicine
DX: N17.9 Acute kidney failure, unspecified (principal); E87.2 Acidosis; R41.0 Disorientation, unspecified; R40.1 Stupor; R64 Cachexia; I95.89 Other hypotension; E86.1 Hypovolemia; C74.92 Malignant neoplasm of unspecified part of left adrenal gland; C74.91 Malignant neoplasm of unspecified part of right adrenal gland; C78.7 Secondary malignant neoplasm of liver and intrahepatic bile duct; Z87.891 Personal history of nicotine dependence; C74.00 Malignant neoplasm of cortex of unspecified adrenal gland; C78.00 Secondary malignant neoplasm of unspecified lung; E86.0 Dehydration; E87.8 Other disorders of electrolyte and fluid balance, not elsewhere classified; E87.5 Hyperkalemia; Z91.81 History of falling; R62.7 Adult failure to thrive; I11.0 Hypertensive heart disease with heart failure; I50.9 Heart failure, unspecified; I48.91 Unspecified atrial fibrillation; N40.0 Benign prostatic hyperplasia without lower urinary tract symptoms; Z66 Do not resuscitate; R60.0 Localized edema
CPT/HCPCS: 36415; 70450; 80053; 83690; 83735; 85025; 85610; 85730; 93005; 96374; 99285; A9270; J1815; J2060; J7120; 80048